=== PATIENT | female | born 1960 | race African-American/Black ===

== ENCOUNTER 2017-04-11 18:43 | Emergency (ER) | payer MEDICAID ==
[~2017-04-11] VITALS: Ht 162.6 cm; Wt 72.6 kg
[2017-04-11 18:43] VITALS: BP 144/79
[2017-04-11] MEDS ORDERED: IBUPROFEN 400 MG TABLET ONE (19:25)
[2017-04-11] MEDS ORDERED: IBUPROFEN 400 MG TABLET PO ONE (19:30)
== END 2017-04-11 19:36 | disposition home or self-care (01) ==
LOC: ER 18:45
DX: S19.80XA Other specified injuries of unspecified part of neck, initial encounter (principal); S80.01XA Contusion of right knee, initial encounter; S09.8XXA Other specified injuries of head, initial encounter; V43.52XA Car driver injured in collision with other type car in traffic accident, initial encounter; Y93.89 Activity, other specified; Y92.413 State road as the place of occurrence of the external cause; Y99.8 Other external cause status
CPT/HCPCS: 99282; A4606; Z7610

== ENCOUNTER 2019-12-09 21:07 | Emergency (ER) | payer MEDICAID ==
[~2019-12-09] VITALS: Ht 162.6 cm; Wt 77.1 kg
--- NOTE | 2019-12-09 21:18 | NUR ---
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
[2019-12-09] MEDS ORDERED: IBUPROFEN 600 MG TABLET PO ONE ×2 (21:25→21:30)
--- NOTE | 2019-12-09 21:31 | NUR ---
TECH AT BEDSIDE FOR XRAY
--- NOTE | 2019-12-09 22:27 | NUR ---
Patient discharged to home in stable condition. Written and verbal after care instructions given. Patient verbalizes understanding of instruction.Pt ambulatory with a steady gait
[2019-12-09 22:37] VITALS: BP 110/76
== END 2019-12-09 22:38 | disposition home or self-care (01) ==
LOC: ER 21:15
DX: M25.531 Pain in right wrist (principal); M25.562 Pain in left knee; M25.561 Pain in right knee; W01.0XXA Fall on same level from slipping, tripping and stumbling without subsequent striking against object, initial encounter; Y93.89 Activity, other specified; Y92.89 Other specified places as the place of occurrence of the external cause; Y99.8 Other external cause status
CPT/HCPCS: 73110; 73564-TC